=== PATIENT | male | born 1995 | race Two or more races ===

== ENCOUNTER 2022-07-08 06:12 | Emergency (ER) | payer BC ==
[~2022-07-08] VITALS: Ht 185.4 cm; Wt 113.6 kg
[2022-07-08] MEDS ORDERED: LACTATED RINGER'S 1,000 ML IV ONE (06:45)
[2022-07-08] MEDS ORDERED: ACETAMINOPHEN 325 MG TAB PO ONE (06:45)
[2022-07-08] MEDS ORDERED: DexAMETHasone SOD PHOS 10MG/1ML VIAL INJ IV ONE (06:45)
[2022-07-08] MEDS ORDERED: AMPICILLIN & SULBACTAM SODIUM 3 GM in SODIUM CHL 0.9% 100 ML IV SCH (06:45)
[2022-07-08 07:01] LABS: Basophils # (auto) 0.1 10 ^3/uL (0-0.2); Basophils % (auto) 0.3 % (0.0-2.0); Eosinophils # (auto) 0 10 ^3/uL (0-0.8); Eosinophils % (auto) 0.1 % (0.0-7.0); Hematocrit 47.5 % (41.0-53.0); Hemoglobin 16.8 g/dL (13.5-17.5); Lymphocytes # (auto) 1.4 10 ^3/uL (0.4-5.4); Lymphocytes % (auto) 9.3 % (10.0-50.0); Mean Corpuscular Hemoglobin 31.5 pg (28.0-32.0); Mean Corpuscular Hgb Conc. 35.2 g/dL (32.0-36.0); Mean Corpuscular Volume 89.4 fL (80.0-100.0); Monocytes # (auto) 1.5 10 ^3/uL (0-1.3); Monocytes % (auto) 9.5 % (0.0-12.0); Neutrophils # (auto) 12.5 10 ^3/uL (1.6-8.6); Neutrophils % (auto) 80.8 % (37.0-80.0); Nucleated Red Blood Cells % 0.1 %; Red Blood Cells 5.32 10^6/uL (4.5-5.90); Red Cell Distribution Width 14.7 % (11.8-14.3); White Blood Cell 15.5 10^3/uL (4.4-10.8)
[2022-07-08] MEDS ORDERED: IOHEXOL 300 MG/ML 100ML BOTTLE IJ ONE (07:45)
[2022-07-08 07:47] LABS: Albumin 3.5 g/dL (3.4-5.0); Calcium 8.8 mg/dL (8.5-10.1); Potassium 3.8 mmol/L (3.5-5.1)
[2022-07-08 07:53] LABS: BUN/Creatinine Ratio 6.9 (10.0-20.0); Bilirubin, Total 0.7 mg/dL (0.2-1.0); Total Protein 8.4 g/dL (6.4-8.2)
[2022-07-08] MEDS ORDERED: MORPHINE SULFATE INJ 2 MG/ml SYRG IV ONE (08:45)
[2022-07-08] MEDS ORDERED: VANCOMYCIN 1GM/250ML 250 ML IV SCH (10:00)
[2022-07-08 11:13] VITALS: BP 160/93
== END 2022-07-08 11:40 | disposition hospice, inpatient (51) ==
LOC: ER 06:12
DX: A41.9 Sepsis, unspecified organism (principal); J36 Peritonsillar abscess
CPT/HCPCS: 36415; 70450; 70491; 80053; 83605; 85025; 87040; 96361; 96365; 96367; 96375; 99291; J1100; J2270; J3370; Q9967